=== PATIENT | male | born 1955 | race Caucasian/White ===

== ENCOUNTER 2018-09-03 09:24 | Day surgery (SDC) | payer OTHER ==
[2018-08-04 15:43] VITALS: BMI 26.4
[2018-09-03] MEDS ORDERED: MIDAZOLAM HCL 2 MG/2 ML SINGLE DOSE VIAL ONE (12:09)
[2018-09-03] MEDS ORDERED: BUPIVACAINE LIPOSOME/PF (EXPAREL) 266 MG/20 ML VIAL ONE (12:10)
[2018-09-03] MEDS ORDERED: SUCCINYLCHOLINE CHLORIDE 200 MG/10 ML VIAL ONE (12:45)
[2018-09-03] MEDS ORDERED: fentaNYL CITRATE 250 MCG/5 ML VIAL ONE (12:45)
[2018-09-03] MEDS ORDERED: PROPOFOL 20 ML ONE (12:45)
[2018-09-03] MEDS ORDERED: ONDANSETRON 4 MG/2 ML VIAL ONE (12:45)
[2018-09-03] MEDS ORDERED: DEXAMETHASONE SOD PHOSPHATE 4 MG/1 ML VIAL ONE (12:45)
[2018-09-03] MEDS ORDERED: ONDANSETRON 4 MG/2 ML VIAL IVPUSH PRN (13:48)
[2018-09-03] MEDS ORDERED: oxyCODONE HCL 5 MG TABLET PO PRN ×2 (13:48)
[2018-09-03] MEDS ORDERED: LACTATED RINGERS SOLUTION 1,000 ML IV SCH (14:00)
[2018-09-03] MEDS ORDERED: EPINEPHrine 1:1,000 1 MG/1 ML - 30ML VIAL (INJECTION) ONE (14:12)
--- NOTE | 2018-09-03 15:22 | OP ---
Operative Note - Note: Operative Date: 09/03/18 Pre-Operative Diagnosis: right knee anterior cruciate ligament tear Operation: right knee arthroscopy. ACL reconstruction with allograft. partial medial and lateral meniscectomy Post-Operative Diagnosis: Same as Pre-op (+LMT MMT) Surgeon: Daniel Bearden Director Emergency Department: Trish Hollis Anesthesiologist/STOCK PLAN ADMINISTRATOR: Del Mcnamara Anesthesia: General, Fractional Operative Report Dictated: Yes
--- NOTE | 2018-09-03 16:23 | OP ---
DATE OF OPERATION: 09/03/2018 PREOPERATIVE DIAGNOSIS: Right knee anterior cruciate ligament rupture. POSTOPERATIVE DIAGNOSIS: Right knee anterior cruciate ligament rupture. Medial and lateral meniscus tears. PROCEDURE: Partial medial and lateral meniscectomy. SURGEON: Daniel Bearden M.D. TELEGRAPH DISPATCHER: Jay Cabrera, whose skillful assistance was necessary for the safe and timely performance of this procedure. Ms. Hollis was able to assist in limb positioning, graft preparation, driving the camera, and retracting, as well as assisting in the insertion of orthopedic fixation hardware. IMPLANTS: Arthrex Tightrope x2. INDICATION: This is a pleasant 63-year-old gentleman who has been suffering from right knee instability. MRI demonstrated ACL rupture. Treatment options including nonoperative versus operative care were reviewed. The patient initially had tried a course of nonoperative care, but had persistent instability, and so ACL reconstruction was recommended. Surgical risks were reviewed in detail including bleeding, infection, neurovascular injury, need for further surgery, postoperative pain and stiffness, and pertinent instability. We reviewed medical risks such as heart attack, stroke, DVT, PE, and . I addressed all the patient's questions and concerns. He voiced understanding and elected to proceed. DESCRIPTION OF PROCEDURE: The patient was brought to the operating room after administration of a regional block in the preoperative holding area. She was then given general anesthesia. The right lower extremity was then prepped and draped in the usual sterile fashion. A perioperative dose of antibiotics was given, and the usual timeout procedure was performed. Preoperative examination of the knee demonstrated range of motion from about 3 degrees to 140 degrees. There is positive locking, positive pivot shift. MCL and LCL were stable. PCL was stable. The portal sites were then marked out. The lateral portal was established using an 11 blade. The arthroscope was then passed to the knee. Examination of patellofemoral joint demonstrated no significant cartilage lesions. Passed the arthroscope down to the notch, demonstrated a very vertical ACL consistent with scarring into the PCL. Arthroscope was then passed to medial compartment. Here, medial portal was established under spinal needle localization. Examination of the medial compartment demonstrated some partial thickness cartilage flaps along the femoral side and slight fraying along the tibial side. A tear was noted at the root of the medial meniscus which was radial in nature. Probing demonstrated it was not full thickness. Utilizing a combination of meniscal biters and a shaver, this was debrided down to a stable base. The arthroscope was then passed into the lateral compartment. Here, there was degenerative tearing noted about the inner rim of the meniscus. Utilizing the shaver as well as meniscal biter, this too was debrided down to a stable base. There was slight articular wearing in the lateral compartment. The arthroscope was then passed back into the notch. The ligament was debrided. ACL was now probed and found to have no tension on it. Utilizing electrocautery as well as the shaver, the ACL remnant was debrided. The notch did have some impingement more posteriorly, and therefore a bur was used to perform a notchplasty. The femoral drill guide was now inserted. It was located at the anatomic origin of the ACL and the femur. A small incision was made distally in the thigh, and the trocar was advanced down to the level of the femur. A flip cutter was then drilled in. General placement was verified and was satisfactory. The socket of 9.5 x 30 was now made, 9.5 was determined based on the allograft being used which was nominally a 9 x 70, but fit for a 9.5 better. The passing suture was now placed. The tibial drill guide was now inserted. Here, was inserted onto the anatomic footprint. Small incision was made just anterior to the tibia, and the trocars were advanced to the level of the bone. Again, the flip cutter was drilled in, position verified, and then a socket of 9.5 x 40 mm was created here. The passage drill was now placed. The lateral portal was now enlarged and both sutures were retrieved out the lateral portal. Sutures for the graft were then passed. The femoral button was passed under direct visualization through the aperture of the socket. It was seated firmly in the femoral cortex. Fluoroscopy was used to verify button position which was satisfactory. The graft was then toggled 20 mm to the femoral side. Tibial sutures were then passed as well. The tibial side was now brought into the socket as well. The knee was then cycled. It was then placed in full extension. The button was sewn on with sutures. The Tightrope was now toggled along the tibial side securing the graft in place. The locking maneuver was performed. The knee was now stable. The excess sutures were now tied and then cut. The deep tissues were approximated 3-0 Vicryl. The subcutaneous tissue was approximated with 3-0 Vicryl. The skin was closed using 3-0 nylon. Sterile dressings were placed. It should be noted the tourniquet was used for 56 minutes during the case and let down at the end. Patient was placed in knee immobilizer. He was transferred to recovery room in stable condition. Jordon INMAN/[id number]
[2018-09-03] MEDS ORDERED: oxyCODONE HCL 5 MG TABLET ONE (16:42)
[2018-09-03 17:23] VITALS: BP 124/72; PULSE 73; TEMP 98
== END 2018-09-03 17:23 | disposition home or self-care (01) ==
LOC: FASU 09:24
PROVIDERS: ATTEND Orthopaedic Surgery Sports Medicine
PROC: 0SBC4ZZ Excision of Right Knee Joint, Percutaneous Endoscopic Approach (ICD-10-PCS; 2018-09-03)
PROC: 0SBC4ZZ Excision of Right Knee Joint, Percutaneous Endoscopic Approach (ICD-10-PCS; 2018-09-03)
PROC: 0MRN47Z Replacement of Right Knee Bursa and Ligament with Autologous Tissue Substitute, Percutaneous Endoscopic Approach (ICD-10-PCS; principal; 2018-09-03 13:09)
DX: S83.511A Sprain of anterior cruciate ligament of right knee, initial encounter (principal); S83.241A Other tear of medial meniscus, current injury, right knee, initial encounter; S83.281A Other tear of lateral meniscus, current injury, right knee, initial encounter; X58.XXXA Exposure to other specified factors, initial encounter; Y93.89 Activity, other specified; Y92.89 Other specified places as the place of occurrence of the external cause
CPT/HCPCS: 73560-TC-RT-FY; 94760